=== PATIENT | female | born 1980 | race Caucasian/White ===

== ENCOUNTER 2016-05-24 07:59 | Inpatient (IN) | payer BC, OTHER ==
[2016-05-24] MEDS ORDERED: Oxytocin in LR* 20 UNITS/1,000 ML BAG IVPB SCH (09:00)
[2016-05-24] MEDS ORDERED: Oxytocin in LR* 20 UNITS/1,000 ML BAG IVPB ONE (09:05)
[2016-05-24 09:42] LABS: Hematocrit 34 % (35-47); Hemoglobin 11.4 g/dl (12.0-16.0); Mean Corpuscular HGB Conc 34 g/dl (31-36); Mean Corpuscular Hemoglobin 30 pg (27-31); Mean Corpuscular Volume 91 fL (80-97); Mean Platelet Volume 10 um3 (7.4-10.4); Red Blood Count 3.76 10^6/ul (4.0-5.4); Red Cell Distribution Width 14 % (10.5-15); White Blood Count 12.2 10^3/ul (3.5-10.8)
[2016-05-24] MEDS ORDERED: OBEPIDURAL* 250 ML ONE (19:50)
[2016-05-24] MEDS ORDERED: EPHEDrine (Pressors)* 50 MG/ML VIAL IV PUSH PRN (20:35)
[2016-05-24] MEDS ORDERED: Phenylephrine IV* 40 MCG/ML 10 ML SYRINGE IV PUSH PRN (20:35)
[2016-05-24] MEDS ORDERED: Sodium Citrate/Citric Acid* 15 ML UDC PO PRN (20:35)
[2016-05-24] MEDS ORDERED: Famotidine TAB* 20 MG PO PRN (20:35)
[2016-05-24] MEDS ORDERED: OBEPIDURAL* 250 ML EPIDURAL SCH (21:00)
[2016-05-25] MEDS ORDERED: Mineral Oil Sterile, TOPICAL* 25 ML BTL ONE (01:44)
[2016-05-25] MEDS ORDERED: oxyCODONE/Acetamin 5/325 MG* TAB PO PRN (05:20)
[2016-05-25] MEDS ORDERED: Dibucaine 1% 28.35 GM TUBE PR PRN (05:20)
[2016-05-25] MEDS ORDERED: Acetaminophen TAB* 325 MG PO PRN (05:20)
[2016-05-25] MEDS ORDERED: Oxytocin in LR* 20 UNITS/1,000 ML BAG IVPB SCH (06:00)
[2016-05-25] MEDS: Ibuprofen TAB* 600 MG PO PRN ×3 (07:52→20:23)
[2016-05-25] MEDS: Witch Hazel PAD* JAR TOPICAL PRN (07:54)
[2016-05-25] MEDS: Docusate CAP* 100 MG PO SCH ×3 (11:43→20:23)
[2016-05-26] MEDS: Ibuprofen TAB* 600 MG PO PRN ×4 (04:29→21:33)
[2016-05-26 06:58] LABS: Hematocrit 21 % (35-47); Hemoglobin 6.9 g/dl (12.0-16.0); Mean Corpuscular HGB Conc 34 g/dl (31-36); Mean Corpuscular Hemoglobin 31 pg (27-31); Mean Corpuscular Volume 91 fL (80-97); Mean Platelet Volume 9 um3 (7.4-10.4); Red Blood Count 2.26 10^6/ul (4.0-5.4); Red Cell Distribution Width 14 % (10.5-15); White Blood Count 15.4 10^3/ul (3.5-10.8)
[2016-05-26 07:19] LABS: Comments Flag Yes
[2016-05-26 07:26] LABS: Add Diff/Slide Review? Slide Review Added
[2016-05-26] MEDS: Ferrous Gluconate TAB* 324 MG TAB PO SCH ×2 (09:30→21:33)
[2016-05-26] MEDS: Docusate CAP* 100 MG PO SCH ×3 (09:30→21:34)
[2016-05-26] MEDS: Witch Hazel PAD* JAR TOPICAL PRN (13:34)
[2016-05-27] MEDS: Ibuprofen TAB* 600 MG PO PRN ×2 (03:41→09:15)
[2016-05-27 07:50] VITALS: BP 125/69
[2016-05-27] MEDS: Ferrous Gluconate TAB* 324 MG TAB PO SCH (09:14)
[2016-05-27] MEDS: Docusate CAP* 100 MG PO SCH (09:15)
== END 2016-05-27 11:35 | disposition home or self-care (01) | DRG 560 ==
LOC: MCHOBOUT 07:59 → MCHOB 08:31
PROVIDERS: ADMIT Nurse Practitioner; ATTEND Obstetrics & Gynecology
PROC: 10D07Z3 Extraction of Products of Conception, Low Forceps, Via Natural or Artificial Opening (ICD-10-PCS; principal; 2016-05-25)
PROC: 10907ZC Drainage of Amniotic Fluid, Therapeutic from Products of Conception, Via Natural or Artificial Opening (ICD-10-PCS; 2016-05-25)
PROC: 3E033VJ Introduction of Other Hormone into Peripheral Vein, Percutaneous Approach (ICD-10-PCS; 2016-05-25)
PROC: 0KQM0ZZ Repair Perineum Muscle, Open Approach (ICD-10-PCS; 2016-05-25)
PROC: 4A1HXCZ Monitoring of Products of Conception, Cardiac Rate, External Approach (ICD-10-PCS; 2016-05-25)
DX: O48.0 Post-term pregnancy (principal); O63.1 Prolonged second stage (of labor); O90.81 Anemia of the puerperium; O70.1 Second degree perineal laceration during delivery; Z3A.41 41 weeks gestation of pregnancy; Z37.0 Single live birth; O77.0 Labor and delivery complicated by meconium in amniotic fluid; O75.81 Maternal exhaustion complicating labor and delivery
CPT/HCPCS: 36415; 85025; 86850; 86900; 86901; A9270-GY

== ENCOUNTER 2018-09-07 02:22 | Inpatient (IN) | payer BC, OTHER ==
[2018-09-07] MEDS ORDERED: Buffered Lidocaine 1% SYRIN* 1 ML/SYRINGE INTRADERM ONE (03:07)
[2018-09-07] MEDS ORDERED: Lactated Ringers 1000 ML Bag* 1,000 ML IV ONE ×2 (03:07→08:15)
--- NOTE | 2018-09-07 03:15 | HP ---
General Information - Reason for Visit active labor - General Information Maternal Age: 35 Grav: 1 Para: 0 SAB: 0 IEA: 0 Estimated Due Date: 05/14/16 Determined By: LMP Maternal Blood Type and Rh: A Positive - Results this Serology/RPR Result: Non-Reactive Rubella Result: Immune HBsAg Result: Negative HIV Result: Negative GBS Culture Result: Negative Past Medical History Delivery History: Hx Complicated Vaginal Delivery - forceps delivery Pertinent Past Medical History: Non-Contributory Pertinent Past Surgical History: See Records - left shoulder reconstruction, nose surgery, herniated disk removal Pertinent Family History: Non-Contributory - Antepartal Records Antepartal Records: Reviewed, Uncomplicated Review of Systems Constitutional: Uncomfortable CV Complaint: No Respiratory: Shortness of Breath: No Gastrointestinal: No Nausea/Vomiting, Normal Bowel Movement Genitourinary: No Dysuria, No Bleeding, No Leaking Fluid Musculoskeletal: No Epigastric Pain, Contractions Neurological: No Headache, No Visual Changes Movement: Normal Exam Allergies/Adverse Reactions: Allergies Sulfa (Sulfonamide Antibiotics) Allergy (Verified 08/18/17 14:58) Vomiting T-98.7, P-67, R-18, BP-135/75, O2-100% - Measurements Height: 5 ft 9 in Weight: 87.997 kg Body Mass Index (BMI): 28.6 Pre- Weight: 71.668 kg - Exam Breast: Breast Exam Deferred CVA: No CVA Tenderness Extremities: No Edema Heart: Normal Rhythm/Heart Sounds HEENT: No Significant Findings Lungs: Clear Bilaterally Rectal: Rectal Exam Deferred Reflexes: DTR 2+ Thyroid: No Thyromegaly - Abdominal Exam Abdomen Exam: Non-Tender, Fundal Height Consistent with Dates - Ultrasound/Biophysical Profile Ultrasound Status: Not Done Targeted Exam Findings See L&D Outpatient Visit Provider Note for Findings: N/A Estimated Weight: 8# Cervical Exam: 5cm Effacement: 100% Station: 0 Presenting Part: Vertex Membrane Status: Bulging Bleeding/Discharge: None EFM Findings - External Monitor Findings Baseline Heart Rate: 150 External Monitor Findings: Accelerations Present, No Pattern of Variable or Late Decelerations, Variability Moderate, Baseline Stable Contractions: Regular, Moderate, 45-90 Seconds Contraction Frequency: 3-5 Assessment/Plan - Assessment 38 year old at 40 0/7 weeks gestation in active labor, membranes intact, no evidence of acidemia - Plan Plan: Admit - Anticipate Vaginal Delivery - Date/Time of Admission Date of Admission: 09/07/18 Time of Admission: 02:41
[2018-09-07] MEDS ORDERED: Lactated Ringers 1000 ML Bag* 1,000 ML IV SCH ×3 (04:00→11:00)
[2018-09-07] MEDS ORDERED: OBEPIDURAL* 250 ML EPIDURAL ONE (07:24)
--- NOTE | 2018-09-07 07:24 | PN ---
Progress Note - Progress Note Date of Service: 09/07/18 Note: slept a little, now more uncomfortable 8cm, 100%, vtx -1 Wants epidural
[2018-09-07 07:43] LABS: ABS Basophils 0.1 10^3/ul (0-0.2); ABS Lymphocytes 0.8 10^3/ul (1.0-4.8); ABS Monocytes 0.4 10^3/ul (0-0.8); ABS Neutrophils 14.9 10^3/ul (1.5-7.7); Hematocrit 35 % (35-47); Hemoglobin 11.9 g/dL (12.0-16.0); Lymphocyte % 4.7 %; Mean Corpuscular HGB Conc 34 g/dL (31-36); Mean Corpuscular Hemoglobin 30 pg (27-31); Mean Corpuscular Volume 90 fL (80-97); Platelet Count 185 10^3/uL (150-450); Red Blood Count 3.93 10^6 /uL (3.70-4.87); Red Cell Distribution Width 14 % (10.5-15); White Blood Count 16.1 10^3/uL (3.5-10.8)
[2018-09-07] MEDS ORDERED: fentaNYL* 50 MCG/ML 2 ML VIAL (100 MCG VIAL) ONE (07:45)
[2018-09-07] MEDS ORDERED: Famotidine TAB* 20 MG PO PRN (08:15)
[2018-09-07] MEDS ORDERED: Sodium Citrate/Citric Acid* 15 ML UDC PO PRN (08:15)
[2018-09-07] MEDS ORDERED: Phenylephrine 40 MCG/ML SYRINGE IV PUSH PRN ×2 (08:15)
[2018-09-07] MEDS ORDERED: OBEPIDURAL* 250 ML EPIDURAL SCH (09:00)
--- NOTE | 2018-09-07 09:18 | PN ---
Progress Note - Progress Note Date of Service: 09/07/18 Note: comfortable after epidural, now feeling pressure cervix: ant lip, bulging forebag. AROM clear fluid at 0914 Will await full dilation
[2018-09-07] MEDS ORDERED: Oxytocin in LR* 20 UNITS/1,000 ML BAG IVPB ONE (10:20)
[2018-09-07] MEDS ORDERED: Witch Hazel PAD* JAR TOPICAL PRN (10:54)
[2018-09-07] MEDS ORDERED: Glycerin ADULT SUPP PR PRN (10:54)
[2018-09-07] MEDS ORDERED: Acetaminophen TAB* 325 MG PO PRN (10:54)
[2018-09-07] MEDS ORDERED: Oxytocin in LR* 20 UNITS/1,000 ML BAG IVPB SCH (11:00)
--- NOTE | 2018-09-07 11:00 | PROCNOTE ---
[facility] OB: Delivery Note - Delivery A Date of : 09/07/18 Time of : 10:23 [place] Sex: Male Score 1 Minute: 9 Score 5 Minutes: 9 Gestational Age in Weeks and Days at Delivery: 40 Weeks and 0 Days Delivery Method: Spontaneous Vaginal Labor: Spontaneous Did Patient attempt ?: N/A, No Previous Amniotic Fluid: Clear Estimated Blood Loss: 200 Anesthesia/Analgesia: CEI for Labor Anesthesia Comment: Dr. Goff Delivered By: Kandi Casanova - Nursery Level of Nursery: Regular/Bedside - Perineum Perineal Injury: Perineal Laceration, 2nd Degree Perineal Injury Comment: repaired with 3-0ccg under 1% lidocaine local Perineal Repair: By Delivering Practioner - Additional Delivery Notes Additional Delivery Notes: SVB [facility], OA, over 2nd deg perineal lac. 6 min 2nd stage. Infant pink with stimulation. Placenta Charley. FF with massage. IV with pitocin running. EBL 200cc. Mother and baby in good condition,
[2018-09-07] MEDS: Docusate CAP* 100 MG PO SCH ×2 (15:19→21:06)
[2018-09-07] MEDS: Ibuprofen TAB* 600 MG PO PRN ×2 (15:19→21:06)
[2018-09-07] MEDS: Dibucaine 1% 28.35 GM TUBE PR PRN (21:06)
[2018-09-08] MEDS: Ibuprofen TAB* 600 MG PO PRN ×4 (04:12→22:50)
[2018-09-08 07:26] LABS: Hematocrit 27 % (35-47); Hemoglobin 9.2 g/dL (12.0-16.0); Mean Corpuscular HGB Conc 34 g/dL (31-36); Mean Corpuscular Hemoglobin 30 pg (27-31); Mean Corpuscular Volume 90 fL (80-97); Mean Platelet Volume 8.8 fL (7.4-10.4); Platelet Count 142 10^3/uL (150-450); Red Blood Count 3.02 10^6 /uL (3.70-4.87); Red Cell Distribution Width 14 % (10.5-15); White Blood Count 11.2 10^3/uL (3.5-10.8)
[2018-09-08] MEDS: Ferrous Gluconate TAB* 324 MG TAB PO SCH ×2 (08:46→21:23)
[2018-09-08] MEDS: Docusate CAP* 100 MG PO SCH ×3 (08:46→21:23)
[2018-09-08] MEDS: Dibucaine 1% 28.35 GM TUBE PR PRN (17:06)
[2018-09-09] MEDS: Ibuprofen TAB* 600 MG PO PRN (05:38)
[2018-09-09] MEDS: Docusate CAP* 100 MG PO SCH (08:16)
[2018-09-09] MEDS: Ferrous Gluconate TAB* 324 MG TAB PO SCH (08:16)
[2018-09-09 09:46] VITALS: BP 120/76
== END 2018-09-09 13:03 | disposition home or self-care (01) | DRG 807 ==
LOC: MCHOBOUT 02:22 → MCHOB 02:41
PROVIDERS: ADMIT Midwife; ATTEND Midwife
PROC: 10E0XZZ Delivery of Products of Conception, External Approach (ICD-10-PCS; principal; 2018-09-07)
PROC: 0KQM0ZZ Repair Perineum Muscle, Open Approach (ICD-10-PCS; 2018-09-07)
PROC: 10907ZC Drainage of Amniotic Fluid, Therapeutic from Products of Conception, Via Natural or Artificial Opening (ICD-10-PCS; 2018-09-07)
DX: O70.1 Second degree perineal laceration during delivery (principal); Z37.0 Single live birth; O90.81 Anemia of the puerperium; D64.9 Anemia, unspecified; Z3A.40 40 weeks gestation of pregnancy
CPT/HCPCS: 36415; 85025; 85027; 86850; 86900; 86901; A9270-GY; J3010